=== PATIENT | female | born 1970 | race Caucasian/White ===

== ENCOUNTER 2016-11-13 21:03 | Emergency (ER) | payer BC ==
[~2016-11-13] VITALS: Ht 177.8 cm; Wt 70.4 kg
[~2016-11-13 21:03] MED LIST: LXPUNK
[2016-11-13 21:05] VITALS: TEMP 36.5; Ht 177.8 cm; Wt 70.4 kg
[2016-11-13] MEDS ORDERED: DiphenhydrAMINE HCL 50 MG/ML VIAL IV STA (21:12)
[2016-11-13] MEDS ORDERED: EpINEphrine INJ 1MG/ML AMP 1 MG/ML AMP IM STA (21:12)
[2016-11-13] MEDS ORDERED: METHYLPREDNISOLONE 125 MG VIAL IV STA (21:12)
[2016-11-13] MEDS ORDERED: SODIUM CHLORIDE 0.9% 1000ML 1,000 ML IV ONE (21:15)
[2016-11-13] MEDS ORDERED: WLLSR/150 PO (21:30)
[2016-11-13] MEDS ORDERED: JNLF153028 PO (21:31)
[2016-11-13] MEDS ORDERED: MELATAB2 PO (21:32)
[2016-11-13] MEDS ORDERED: DIPH50TA10 PO (21:33)
[2016-11-13 21:40] LABS: MEAN CORPUSCULAR HEMOGLOBIN 29.5 pg (25-34); MEAN CORPUSCULAR HGB CONC 35.1 g/dl (32-36); MEAN PLATELET VOLUME 10.7 fL (7.4-10.4); PLATELET COUNT 347 K/uL (130-400); RED BLOOD COUNT 5.12 M/uL (4.2-5.4); WHITE BLOOD COUNT 7.27 K/uL (4.8-10.8)
[2016-11-13 22:00] LABS: BUN/CREATININE RATIO 13.2 (10-20); CALCIUM 9.4 mg/dl (8.5-10.1); CREATININE 0.88 mg/dl (0.60-1.20); POTASSIUM 3.6 mmol/L (3.5-5.1)
[2016-11-13 22:03] LABS: ALB/GLOB RATIO 1.1 (0.9-2)
[2016-11-13] MEDS ORDERED: PRED50TA PO (22:45)
[2016-11-13 22:47] LABS: BASO ABS # 0.13 K/uL (0-0.2); BASOPHIL % 1.8 %; COMPLETE YES; EOSINOPHIL % 0.9 %; LYMPH ABS # 3.31 K/uL (1.2-3.4); LYMPHOCYTE % 45.5 %; VARIANT LYM ABS # 1.32 K/uL; VARIANT LYMPHOCYTE % 18.2 %
--- NOTE | 2016-11-13 22:58 | EMERGENCY ROOM VISIT NOTE ---
History First contact with patient: 21:09 Chief Complaint: ALLERGIC REACTION Stated Complaint: ALLERGIC REACTION Nursing Triage Summary: Pt was exposed to unknown allergen. Pt experiencing generalized rash. History of Present Illness The patient is a 46 year old female who presents to the Emergency Room with complaints of allergic reaction. The patient states her symptoms began about 2 hours prior to arrival. She did not start new medications or any different foods than normal. The only thing different today was that she did lick multiple envelopes to send male today, and shortly afterwards she began having discomfort of her tongue. Patient is now having a rash across her entire body. The patient does not have worsening throat discomfort, coughing, or wheezing. She does have abdominal cramping and feels like she may need to use the bathroom. She does not have fever or chills. She has had a similar episode like this several months ago. She used Benadryl at home. She does have an EpiPen, but did not feel that she needed to use it. She rates her current discomfort a 5/10. Review of Systems More than 10 systems were reviewed and otherwise negative with the exception of history of present illness. Past Medical/Surgical History No pertinent chronic medical disease Family History No pertinent family history Social History Smoking Status: Never Smoker Occupation Status: employed Current/Historical Medications Scheduled Bupropion Hcl (Wellbutrin Sr), 150 MG PO DAILY Ethinyl Estradiol/Norethindr (), 1 TAB PO DAILY Melatonin (Melatonin Maximum Strengt), 5 MG PO HS Prednisone (Prednisone), 50 MG PO DAILY Scheduled PRN Diphenhydramine Hcl (Sleep) (Diphenhydramine Hcl), 50 MG PO Q8 PRN for ALLERGIC REACTION Allergies Coded Allergies: Clarithromycin (Verified Allergy, Mild, 11/13/16) Physical Exam Vital Signs Date Time Temp Pulse Resp B/P Pulse Ox O2 Delivery O2 Flow Rate FiO2 11/14/16 00:51 106 20 120/69 97 Room Air 11/14/16 00:14 105 20 138/79 97 Room Air 11/13/16 22:26 103 20 131/77 97 Room Air 11/13/16 21:29 98 11/13/16 21:17 Room Air 11/13/16 21:05 36.5 112 18 123/67 97 Room Air Physical Exam VITALS: Vitals are noted on the nurse's note and reviewed by myself. Vital signs stable. GENERAL: Well-developed, well-nourished, white female who is in moderate distress secondary to her stated complaint. She is cooperative with the examination. HEAD: Normocephalic atraumatic. EARS: External ear normal. External auditory canals clear, tympanic membranes pearly darden without erythema or effusion bilaterally. EYES: Pupils equal round and reactive to light and accommodation. Conjunctivae without injection, sclerae without icterus. Extraocular movements intact. NOSE: Patent, turbinates without inflammation or discharge. MOUTH: Mucous membranes moist. Tonsils are not enlarged. Pharynx without erythema, blood, or exudate. Uvula midline. Airway patent. NECK: Supple without nuchal rigidity. No lymphadenopathy. No thyromegaly. Cervical spine is nontender. HEART: Regular rate and rhythm without murmurs gallops or rubs. LUNGS: Clear to auscultation bilaterally without wheezes, rales or rhonchi. No retractions or accessory muscle use. ABDOMEN: Positive normal bowel sounds x 4. Soft, nontender, without masses or organomegaly. No guarding or rebound tenderness. MUSCULOSKELETAL: No muscle atrophy, erythema, or edema noted. Full range of motion without joint tenderness in all extremities. SKIN: The skin was with diffuse urticarial rash across her body. Palms and soles are spared. Medical Decision & Procedures Laboratory Results 11/13/16 21:25 Red Blood Count 5.12, Mean Corpuscular Volume 84.0, Mean Corpuscular Hemoglobin 29.5, Mean Corpuscular Hemoglobin Concent 35.1, Mean Platelet Volume 10.7 11/13/16 21:25 Test 11/13/16 21:25 White Blood Count 7.27 K/uL (4.8-10.8) Red Blood Count 5.12 M/uL (4.2-5.4) Hemoglobin 15.1 g/dL (12.0-16.0) Hematocrit 43.0 % (37-47) Mean Corpuscular Volume 84.0 fL (80-100) Mean Corpuscular Hemoglobin 29.5 pg (25-34) Mean Corpuscular Hemoglobin Concent 35.1 g/dl (32-36) Platelet Count 347 K/uL (130-400) Mean Platelet Volume 10.7 fL (7.4-10.4) RDW Standard Deviation 44.0 fL (36.4-46.3) RDW Coefficient of Variation 14.2 % (11.5-14.5) Neutrophils % (Manual) 30.0 % Lymphocytes % (Manual) 45.5 % Variant Lymphocytes % (manual) 18.2 % Monocytes % (Manual) 3.6 % Eosinophils % (Manual) 0.9 % Basophils % (Manual) 1.8 % Neutrophils # (Manual) 2.18 K/uL (1.4-6.5) Total Absolute Neutrophils 2.18 K/uL (1.4-6.5) Lymphocytes # (Manual) 3.31 K/uL (1.2-3.4) Absolute Variant Lymphocytes 1.32 K/uL Total Absolute Lymphocytes 4.63 K/uL (1.2-3.4) Monocytes # (Manual) 0.26 K/uL (0.11-0.59) Eosinophils # (Manual) 0.07 K/uL (0-0.5) Basophils # (Manual) 0.13 K/uL (0-0.2) Anion Gap 15.0 mmol/L (3-11) Est Creatinine Clear Calc Drug Dose 88.2 ml/min Estimated GFR () 92.6 Estimated GFR (Non- 79.9 BUN/Creatinine Ratio 13.2 (10-20) Calcium Level 9.4 mg/dl (8.5-10.1) Total Bilirubin 0.3 mg/dl (0.2-1) Aspartate Amino Transf (AST/SGOT) 17 U/L (15-37) Alanine Aminotransferase (ALT/SGPT) 29 U/L (12-78) Alkaline Phosphatase 61 U/L (45-117) Total Protein 7.8 gm/dl (6.4-8.2) Albumin 4.0 gm/dl (3.4-5.0) Globulin 3.8 gm/dl (2.5-4.0) Albumin/Globulin Ratio 1.1 (0.9-2) Medications Administered Medications (Trade) Dose Ordered Sig/Garret Route Start Time Stop Time Status Last Admin Dose Admin Sodium Chloride (Nss 1000ml) 1,000 ml @ 999 mls/hr Q1H1M ONCE IV 11/13/16 21:15 11/13/16 22:15 DC 11/13/16 21:31 999 MLS/HR Methylprednisolone Sodium Succinate (Solu-Medrol IV) 125 mg NOW STAT IV 11/13/16 21:12 11/13/16 21:18 DC 11/13/16 21:31 125 MG Diphenhydramine HCl (Benadryl Inj) 25 mg NOW STAT IV 11/13/16 21:12 11/13/16 21:18 DC 11/13/16 21:31 25 MG Epinephrine HCl (EpINEphrine INJ 1MG/ML AMP/VIAL) 0.3 mg NOW STAT IM 11/13/16 21:12 11/13/16 21:18 DC 11/13/16 21:24 0.3 MG ED Course Physical exam and history were performed. Nursing notes and EMR were reviewed. Patient appears to have allergic reaction to unknown antigen. The patient has a very impressive rash across her entire body. She does not have difficulty breathing or chest pain, however she does have GI symptoms as well. Because of this IV access was established and labs are obtained. Patient was hydrated with normal saline. She was given 125 mg IV Solu-Medrol and 25 mg IV Benadryl. The patient was given 0.3 mg IM epinephrine. She was placed on the rn cardiac rehab. Patient blood work is as above and was reviewed. She does not have a significantly elevated white blood cell count, anemia, bandemia, or significant electrolyte imbalance. The patient remained in stable condition for several hours. She overall is felt to be stable for discharge home, and she did not experience a rebound phenomenon following initiation of the epinephrine. The patient will be given a course of prednisone for her symptoms as an outpatient. She may use over-the- counter Benadryl and Zantac. She was thoroughly invited back to the ER with any new, worsening, or concerning symptoms. The chart was completed utilizing [employer] Speech Voice Recognition Software. Grammatical errors, random word insertions, pronoun errors, and incomplete sentences are an occasional consequence of this system due to software limitations, ambient noise, and hardware issues. Any formal questions or concerns about the content, text, or information contained within the body of this dictation should be directly addressed to the provider for clarification. . Medical Decision Differential diagnosis: Etiologies such as allergic reaction, anaphylaxis, urticaria, Vick-Murray syndrome, toxic epidermal necrolysis, erythema multiforme, cellulitis, as well as others were entertained. Impression Primary Impression: Allergic reaction Departure Information Dispostion Home / Self-Care Condition GOOD Prescriptions Prednisone (Prednisone) 50 Mg Tab 50 MG PO DAILY for 4 Days, #4 TAB Prov: Lan Wyman PA-C 11/13/16 Forms HOME CARE DOCUMENTATION FORM, Work Instructions, Additional Instructions: Patient was seen and evaluated today in the emergency department fo medical care. Return to work/school on 11/15/2016. Please excuse. IMPORTANT VISIT INFORMATION Patient Instructions My [facility] Additional Instructions You were seen and evaluated today on an emergency basis only. This is not a substitute for, or an effort to provide, complete comprehensive medical care. It is not possible to recognize and treat all injuries or illnesses in a single emergency department visit. For this reason it is recommended that you followup with your primary care physician in the next 1-2 days for recheck of her condition. Take prednisone 50 mg daily for the next 4 days. You may use [id number] Benadryl and Zantac as directed on the packaging. This may help with your symptoms. You are welcome to return to the emergency department anytime with new, worsening, or concerning symptoms. Work Instructions Additional Work Instructions: Patient was seen and evaluated today in the emergency department for medical care. Return to work/school on 11/15/2016. Please excuse.
[2016-11-14 00:51] VITALS: BP 120/69; PULSE 106; O2SAT 97
== END 2016-11-14 01:04 | disposition home or self-care (01) ==
LOC: C.EDB 21:04 → C.EDC 11-14 01:04
DX: T78.40XA Allergy, unspecified, initial encounter (principal); X58.XXXA Exposure to other specified factors, initial encounter; Z79.899 Other long term (current) drug therapy

== ENCOUNTER 2017-11-12 15:46 | Inpatient (IN) | payer BC, OTHER ==
[~2017-11-12] VITALS: Ht 177.8 cm; Wt 71.9 kg
[~2017-11-12 15:46] MED LIST changes: +DIPH50TA10 PO; +JNLF153028 PO; -LXPUNK; +MELATAB2 PO; +WLLSR/150 PO
[2017-11-12] MEDS ORDERED: METHYLPREDNISOLONE 125 MG VIAL IV STA (16:02)
[2017-11-12] MEDS ORDERED: SODIUM CHLORIDE 0.9% 1000ML 1,000 ML IV STA (16:04)
[2017-11-12] MEDS ORDERED: FAMOTIDINE IV INJ 20 MG in DEXTROSE 5% 100ML 100 ML IV SCH (16:15)
[2017-11-12] MEDS ORDERED: OPTIRAY 320 IV PRN (16:15)
[2017-11-12] MEDS ORDERED: GI COCKTAIL PO ONE (16:15)
[2017-11-12] MEDS ORDERED: CETI10TA84 PO (16:28)
[2017-11-12 16:37] LABS: BASO % 0.3 %; BASO ABS # 0.03 K/uL (0-0.2); EOS % 3.7 %; EOS ABS # 0.32 K/uL (0-0.5); HEMATOCRIT 43.4 % (37-47); HEMOGLOBIN 15.4 g/dL (12.0-16.0); IG# 0.03 K/uL (0.00-0.02); LYMPH % 24.2 %; LYMPH ABS # 2.08 K/uL (1.2-3.4); MEAN CELL VOLUME 86.1 fL (80-100); MEAN CORPUSCULAR HEMOGLOBIN 30.6 pg (25-34); MEAN CORPUSCULAR HGB CONC 35.5 g/dl (32-36); MONO % 9.3 %; NEUT % 62.2 %; NEUT ABS # 5.35 K/uL (1.4-6.5); PLATELET COUNT 292 K/uL (130-400); WHITE BLOOD COUNT 8.61 K/uL (4.8-10.8)
[2017-11-12 16:48] LABS: ALBUMIN 3.7 gm/dl (3.4-5.0); CALCIUM 8.8 mg/dl (8.5-10.1); CREATININE 0.9 mg/dl (0.60-1.20); POTASSIUM 3.4 mmol/L (3.5-5.1)
[2017-11-12 16:50] LABS: TOTAL PROTEIN 7.9 gm/dl (6.4-8.2)
[2017-11-12] MEDS ORDERED: LIDOCAINE HCL 2% VISC SOLN 20 ML UDC ONE (16:54)
[2017-11-12] MEDS ORDERED: ALUMINUM/MAGNESIUM SUSP 30 ML UDC ONE (16:54)
[2017-11-12] MEDS ORDERED: FAMOTIDINE 20MG/5ML IV PUSH IV ONE (16:56)
--- NOTE | 2017-11-12 17:49 | DIAGNOSTIC IMAGING REPORT ---
CT SCAN OF THE ABDOMEN AND PELVIS WITH IV CONTRAST CLINICAL HISTORY: Epigastric abdominal pain. COMPARISON STUDY: Abdominal CT dated 01/29/2011. TECHNIQUE: Following the IV administration of 95 cc of Optiray 320, CT scan of the abdomen and pelvis is performed from the lung bases to the proximal femora. Images are reviewed in the axial, sagittal, and coronal planes. IV contrast was administered without complication. A dose lowering technique was utilized adhering to the principles of ALARA. CT DOSE: 315.01 mGy.cm FINDINGS: Lung bases: The heart is normal in size and without pericardial effusion. The lung bases are clear. Liver: The contrast-enhanced liver is normal in size, contour, and attenuation. There is no intrahepatic biliary ductal dilatation. The hepatic veins and portal veins are patent. Gallbladder: The gallbladder is distended. The gallbladder wall is thickened and there is faint pericholecystic stranding and fluid. A calcified gallstone is seen in the region of the gallbladder neck on image #127. The appearance is highly concerning for acute cholecystitis. Spleen: Normal in size and attenuation. Pancreas: Unremarkable. Adrenal glands: Unremarkable. Kidneys: The contrast enhanced kidneys are normal in size and without hydronephrosis. The kidneys enhance symmetrically. Abdominal vasculature: The abdominal aorta is normal in course and caliber. Bowel: There is mild to moderate colonic fecal retention. No bowel obstruction is seen. The appendix is well-visualized and normal. Peritoneum: There is no intraperitoneal free air or abdominal ascites. There is a small fat-containing umbilical hernia. Lymphadenopathy: None. Pelvic viscera: The bladder, uterus, and adnexa are normal as visualized. There are bilateral ovarian follicles. An involuting follicle suggested on the right. A small to moderate volume of free fluid is seen in the cul-de-sac. A tampon is in place. Skeletal structures: No lytic or blastic lesions are seen. IMPRESSION: 1. Cholelithiasis with evidence of acute cholecystitis. Correlation with clinical and laboratory findings is recommended. If confirmation is required then ultrasound would be appropriate. 2. Free fluid in the cul-de-sac is likely within physiologic limits. 3. Additional findings as above. Electronically signed by: Carlos Alberto Angeles M.D. 11/12/2017 5:48 PM Dictated Date/Time: 11/12/2017 5:43 PM
[2017-11-12] MEDS ORDERED: CEFOXITIN 2000MG/60 ML D5W IV STA (18:09)
--- NOTE | 2017-11-12 19:10 | Surgery Consultation ---
Consultation Date of Consultation: Nov 12, 2017. Attending Physician: Reason for Consultation: Acute cholecystitis History of Present Illness Patient presented to the ED this evening due to abdominal pain and an allergic reaction. States she has had similar allergic reactions in the past requiring epinephrine. She did not require any at this visit but she was still having abdominal pain so a CT abd/pelvis was ordered showing findings of Cholelithiasis with evidence of acute cholecystitis. WBC WNL. States she has been having abdominal pain since Sunday. Reports her pain is somewhat exacerbated by food but she has barely eaten anything lately. Reports her pain in the RUQ epigastric area. Denies fever/chills. She has been urinating and moving her bowels without issue. Denies history of previous abdominal surgeries. She denies use of any blood thinning or anticoagulant medications. FHx positive for gallbladder disease (mother). Last ate around noon today without any issues. Last BM this morning which she reports was normal for her. Past Medical/Surgical History Medical Problems: (1) Allergic reaction Status: Acute Family History Diabetes mellitus Hypertension Kidney disease Seizures Social History Smoking Status: Never Smoker Occupation Status: employed Allergies Coded Allergies: Clarithromycin (Verified Allergy, Mild, 11/12/17) Amoxicillin (Unverified Allergy, Unknown, HIVES/RASH, 11/12/17) Home Medications Scheduled Bupropion Hcl (Wellbutrin Sr), 150 MG PO DAILY Cetirizine (Zyrtec), 10 MG PO HS Ethinyl Estradiol/Norethindr (), 1 TAB PO DAILY Melatonin (Melatonin Maximum Strengt), 5 MG PO HS Scheduled PRN Diphenhydramine Hcl (Sleep) (Diphenhydramine Hcl), 50 MG PO Q8 PRN for ALLERGIC REACTION Current Inpatient Medications Current Inpatient Medications Medications (Trade) Dose Ordered Sig/Garret Route Start Time Stop Time Status Last Admin Dose Admin Famotidine 20 mg/ Dextrose 102 ml @ 200 mls/hr NOW IV 11/12/17 16:15 12/12/17 16:14 Ioversol (Optiray 320) 100 ml UD PRN IV 11/12/17 16:15 11/16/17 16:14 Review of Systems Constitutional: No fever, No chills Respiratory: No shortness of breath Cardiovascular: No chest pain Abdomen: + pain (RUQ, epigastric), No nausea, No vomiting, No diarrhea, No constipation Genitourinary - Female: No dysuria Integumentary: No color change Physical Exam Date Time Temp Pulse Resp B/P (MAP) Pulse Ox O2 Delivery O2 Flow Rate FiO2 11/12/17 16:47 89 139/89 99 Room Air 11/12/17 16:45 98 Room Air 11/12/17 15:52 36.8 124 16 168/97 97 Room Air General Appearance: WD/WN, no apparent distress Head: normocephalic, atraumatic ENT: hearing grossly normal Respiratory/Chest: no respiratory distress, no accessory muscle use Abdomen/GI: soft, no organomegaly, no pulsatile mass, + tenderness (Mild RUQ, Mild periumbilical) Neurologic/Psych: alert, normal mood/affect, oriented x 3 Skin: normal color, warm/dry Laboratory Results Last 24 Hours Test 11/12/17 16:15 11/12/17 16:35 White Blood Count 8.61 K/uL Red Blood Count 5.04 M/uL Hemoglobin 15.4 g/dL Hematocrit 43.4 % Mean Corpuscular Volume 86.1 fL Mean Corpuscular Hemoglobin 30.6 pg Mean Corpuscular Hemoglobin Concent 35.5 g/dl Platelet Count 292 K/uL Neutrophils (%) (Auto) 62.2 % Lymphocytes (%) (Auto) 24.2 % Monocytes (%) (Auto) 9.3 % Eosinophils (%) (Auto) 3.7 % Basophils (%) (Auto) 0.3 % Neutrophils # (Auto) 5.35 K/uL Lymphocytes # (Auto) 2.08 K/uL Monocytes # (Auto) 0.80 K/uL Eosinophils # (Auto) 0.32 K/uL Basophils # (Auto) 0.03 K/uL Immature Granulocyte % (Auto) 0.3 % Immature Granulocyte # (Auto) 0.03 K/uL Sodium Level 137 mmol/L Potassium Level 3.4 mmol/L Chloride Level 104 mmol/L Carbon Dioxide Level 25 mmol/L Anion Gap 8.0 mmol/L Blood Urea Nitrogen 12 mg/dl Creatinine 0.90 mg/dl Est Creatinine Clear Calc Drug Dose 85.4 ml/min Estimated GFR () 89.5 Estimated GFR (Non- 77.2 BUN/Creatinine Ratio 13.4 Random Glucose 92 mg/dl Calcium Level 8.8 mg/dl Total Bilirubin 0.5 mg/dl Direct Bilirubin 0.1 mg/dl Aspartate Amino Transf (AST/SGOT) 14 U/L Alanine Aminotransferase (ALT/SGPT) 29 U/L Alkaline Phosphatase 71 U/L Total Protein 7.9 gm/dl Albumin 3.7 gm/dl Lipase 178 U/L Urine Color DK YELLOW Urine Appearance CLEAR Urine pH 6.0 Urine Specific Fajardo 1.036 Urine Protein TRACE Urine Glucose (UA) NEG Urine Ketones TRACE Urine Occult Blood NEG Urine Nitrite NEG Urine Bilirubin NEG Urine Urobilinogen NEG Urine Leukocyte Esterase NEG Urine WBC (Auto) 1-5 /hpf Urine RBC (Auto) 0-4 /hpf Urine Hyaline Casts (Auto) 5-10 /lpf Urine Epithelial Cells (Auto) >30 /lpf Urine Bacteria (Auto) NEG Urine Renal Epithelial Cells 5-10 /lpf Urine Mucus PRESENT Urine Test NEG Assessment & Plan Cholelithiasis with CT findings consistent for acute cholecystitis Dr. Rossi in to see and examine patient. Pain controlled, No N/V at this time. Plan for laparoscopic cholecystectomy with possible intraoperative cholangiogram, possible open with Dr. Rossi tomorrow. Admit med/surg, NPO after midnight, IV fluids, IV Mefoxin 2g Q6H, Pain medication PRN, Zofran PRN, SCDs. Please contact with questions or concerns.
[2017-11-12] MEDS ORDERED: MoRPHine SULFATE 2 MG/ML CARP IV PRN ×2 (19:15→21:30)
[2017-11-12] MEDS ORDERED: MoRPHine SULFATE 4 MG/ML 1 ML CARP\\VIAL IV PRN ×2 (19:15→21:30)
[2017-11-12] MEDS: SODIUM CHLORIDE 0.9% 1000ML 1,000 ML IV SCH (19:54)
[2017-11-12 20:00] VITALS: BP 138/89; PULSE 93; TEMP 36.7; O2SAT 96; Ht 177.8 cm; Wt 71.9 kg
[2017-11-12] MEDS: ACETAMINOPHEN IV 1,000 MG in EMPTY BAG 0 ML IV SCH (21:00)
--- NOTE | 2017-11-12 22:26 | EMERGENCY ROOM VISIT NOTE ---
History Report prepared by Nic: Saad Pryor Under the Supervision of: Dr. Miguel Ángel Romero D.O. First contact with patient: 15:56 Chief Complaint: ALLERGIC REACTION Stated Complaint: RASH, ITCHY, ABDOMINAL PAIN History of Present Illness The patient is a 47 year old female with a history of allergic reactions who presents to the Emergency Room with complaints of a sudden allergic reaction that started earlier this afternoon. She notes that she has had 3 allergic reactions like this in the past. The patient states that initially her armpits and hands got itchy and red, and then it spreads to her legs. She notes that she took 50 mg Benadryl around an hour ago. She says that her lower lips then became numb. The patient says that she has not had an allergic reaction like this in a year, and she follows-up with a [facility] enterprise resource analyst. She adds that she has been having nausea and abdominal pain for a few days. 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 The patient notes that her last bowel movement was 2 hours ago and it was normal. She denies any cough, runny nose, chest pain , vomiting, or diarrhea. She says that she has not gotten hives with her previous allergic reactions. The patient still has her gallbladder and appendix. Source of History: patient Onset: Earlier this afternoon Position: other (global) Symptom Intensity: itchy and red on armpits, hands, legs Quality: other (allergic reaction) Timing: other (sudden) Associated Symptoms: + nausea, + abdominal pain, + numbness (lower lips), No cough (or runny nose), No vomiting, No diarrhea Note: No other associated symptoms noted. Review of Systems See HPI for pertinent positives & negatives. A total of 10 systems reviewed and were otherwise negative. Past Medical & Surgical Medical Problems: (1) Asthma (2) Cholecystitis, acute with cholelithiasis Family History Diabetes mellitus Hypertension Kidney disease Seizures Social History Smoking Status: Never Smoker Drug Use: none Marital Status: Housing Status: lives with family Occupation Status: employed Current/Historical Medications Scheduled Bupropion Hcl (Wellbutrin Sr), 150 MG PO DAILY Cetirizine (Zyrtec), 10 MG PO HS Ethinyl Estradiol/Norethindr (), 1 TAB PO DAILY Melatonin (Melatonin Maximum Strengt), 5 MG PO HS Scheduled PRN Diphenhydramine Hcl (Sleep) (Diphenhydramine Hcl), 50 MG PO Q8 PRN for ALLERGIC REACTION Allergies Coded Allergies: Clarithromycin (Verified Allergy, Mild, 11/12/17) Amoxicillin (Unverified Allergy, Unknown, HIVES/RASH, 11/12/17) Physical Exam Vital Signs Date Time Temp Pulse Resp B/P (MAP) Pulse Ox O2 Delivery O2 Flow Rate FiO2 11/12/17 19:18 94 18 148/92 99 Room Air 11/12/17 16:47 89 139/89 99 Room Air 11/12/17 16:45 98 Room Air 11/12/17 15:52 36.8 124 16 168/97 97 Room Air Physical Exam GENERAL: Sitting up in bed, alert, well appearing, well nourished, no distress, non-toxic, talking in full sentences. EYE EXAM: normal conjunctiva. PERRL and EOM's grossly intact. OROPHARYNX: no exudate, no erythema, lips, buccal mucosa, and tongue normal and mucous membranes are moist NECK: supple, no nuchal rigidity, no adenopathy, non-tender LUNGS: Clear to auscultation. Normal chest wall mechanics HEART: no murmurs, S1 normal and S2 normal ABDOMEN: abdomen soft, minimal tenderness in epigastric region, normo-active bowel sounds, no masses, no rebound or guarding. BACK: Back is symmetrical on inspection and there is no deformity, no midline tenderness, no CVA tenderness. SKIN: no rashes and no bruising UPPER EXTREMITIES: upper extremities are grossly normal. LOWER EXTREMITIES: No pitting edema. NEURO EXAM: Normal sensorium, cranial nerves II-XII grossly intact, normal speech, no gross weakness of arms, no gross weakness of legs. Medical Decision & Procedures ER Provider Diagnostic Interpretation: CT:Per my review, radiologist interpretation. CT SCAN OF THE ABDOMEN AND PELVIS WITH IV CONTRAST CLINICAL HISTORY: Epigastric abdominal pain. COMPARISON STUDY: Abdominal CT dated 01/29/2011. TECHNIQUE: Following the IV administration of 95 cc of Optiray 320, CT scan of the abdomen and pelvis is performed from the lung bases to the proximal femora. Images are reviewed in the axial, sagittal, and coronal planes. IV contrast was administered without complication. A dose lowering technique was utilized adhering to the principles of ALARA. CT DOSE: 315.01 mGy.cm FINDINGS: Lung bases: The heart is normal in size and without pericardial effusion. The lung bases are clear. Liver: The contrast-enhanced liver is normal in size, contour, and attenuation. There is no intrahepatic biliary ductal dilatation. The hepatic veins and portal veins are patent. Gallbladder: The gallbladder is distended. The gallbladder wall is thickened and there is faint pericholecystic stranding and fluid. A calcified gallstone is seen in the region of the gallbladder neck on image #127. The appearance is highly concerning for acute cholecystitis. Spleen: Normal in size and attenuation. Pancreas: Unremarkable. Adrenal glands: Unremarkable. Kidneys: The contrast enhanced kidneys are normal in size and without hydronephrosis. The kidneys enhance symmetrically. Abdominal vasculature: The abdominal aorta is normal in course and caliber. Bowel: There is mild to moderate colonic fecal retention. No bowel obstruction is seen. The appendix is well-visualized and normal. Peritoneum: There is no intraperitoneal free air or abdominal ascites. There is a small fat-containing umbilical hernia. Lymphadenopathy: None. Pelvic viscera: The bladder, uterus, and adnexa are normal as visualized. There are bilateral ovarian follicles. An involuting follicle suggested on the right. A small to moderate volume of free fluid is seen in the cul-de-sac. A tampon is in place. Skeletal structures: No lytic or blastic lesions are seen. IMPRESSION: 1. Cholelithiasis with evidence of acute cholecystitis. Correlation with clinical and laboratory findings is recommended. If confirmation is required then ultrasound would be appropriate. 2. Free fluid in the cul-de-sac is likely within physiologic limits. 3. Additional findings as above. Electronically signed by: Carlos Alberto Angeles M.D. 11/12/2017 5:48 PM Dictated Date/Time: 11/12/2017 5:43 PM Laboratory Results 11/12/17 16:15 Red Blood Count 5.04, Mean Corpuscular Volume 86.1, Mean Corpuscular Hemoglobin 30.6, Mean Corpuscular Hemoglobin Concent 35.5, Neutrophils (%) (Auto) 62.2, Lymphocytes (%) (Auto) 24.2, Monocytes (%) (Auto) 9.3, Eosinophils (%) (Auto) 3.7, Basophils (%) (Auto) 0.3, Neutrophils # (Auto) 5.35, Lymphocytes # (Auto) 2.08, Monocytes # (Auto) 0.80, Eosinophils # (Auto) 0.32, Basophils # (Auto) 0.03 11/12/17 16:15 Test 11/12/17 16:15 11/12/17 16:35 White Blood Count 8.61 K/uL (4.8-10.8) Red Blood Count 5.04 M/uL (4.2-5.4) Hemoglobin 15.4 g/dL (12.0-16.0) Hematocrit 43.4 % (37-47) Mean Corpuscular Volume 86.1 fL (80-100) Mean Corpuscular Hemoglobin 30.6 pg (25-34) Mean Corpuscular Hemoglobin Concent 35.5 g/dl (32-36) Platelet Count 292 K/uL (130-400) Neutrophils (%) (Auto) 62.2 % Lymphocytes (%) (Auto) 24.2 % Monocytes (%) (Auto) 9.3 % Eosinophils (%) (Auto) 3.7 % Basophils (%) (Auto) 0.3 % Neutrophils # (Auto) 5.35 K/uL (1.4-6.5) Lymphocytes # (Auto) 2.08 K/uL (1.2-3.4) Monocytes # (Auto) 0.80 K/uL (0.11-0.59) Eosinophils # (Auto) 0.32 K/uL (0-0.5) Basophils # (Auto) 0.03 K/uL (0-0.2) Immature Granulocyte % (Auto) 0.3 % Immature Granulocyte # (Auto) 0.03 K/uL (0.00-0.02) Anion Gap 8.0 mmol/L (3-11) Est Creatinine Clear Calc Drug Dose 85.4 ml/min Estimated GFR () 89.5 Estimated GFR (Non- 77.2 BUN/Creatinine Ratio 13.4 (10-20) Calcium Level 8.8 mg/dl (8.5-10.1) Total Bilirubin 0.5 mg/dl (0.2-1) Direct Bilirubin 0.1 mg/dl (0-0.2) Aspartate Amino Transf (AST/SGOT) 14 U/L (15-37) Alanine Aminotransferase (ALT/SGPT) 29 U/L (12-78) Alkaline Phosphatase 71 U/L (45-117) Total Protein 7.9 gm/dl (6.4-8.2) Albumin 3.7 gm/dl (3.4-5.0) Lipase 178 U/L (73-393) Urine Color DK YELLOW Urine Appearance CLEAR (CLEAR) Urine pH 6.0 (4.5-7.5) Urine Specific [place] 1.036 (1.000-1.030) Urine Protein TRACE (NEG) Urine Glucose (UA) NEG (NEG) Urine Ketones TRACE (NEG) Urine Occult Blood NEG (NEG) Urine Nitrite NEG (NEG) Urine Bilirubin NEG (NEG) Urine Urobilinogen NEG (NEG) Urine Leukocyte Esterase NEG (NEG) Urine WBC (Auto) 1-5 /hpf (0-5) Urine RBC (Auto) 0-4 /hpf (0-4) Urine Hyaline Casts (Auto) 5-10 /lpf (0-5) Urine Epithelial Cells (Auto) >30 /lpf (0-5) Urine Bacteria (Auto) NEG (NEG) Urine Renal Epithelial Cells 5-10 /lpf (0-5) Urine Mucus PRESENT (NONE PRSENT) Urine Test NEG (NEG) Laboratory results per my review. Medications Administered Medications (Trade) Dose Ordered Sig/Garret Route Start Time Stop Time Status Last Admin Dose Admin Methylprednisolone Sodium Succinate (Solu-Medrol IV) 125 mg NOW STAT IV 11/12/17 16:02 11/12/17 16:05 DC 11/12/17 17:00 125 MG Sodium Chloride 1,000 ml @ 999 mls/hr Q1H1M STAT IV 11/12/17 16:04 11/12/17 17:04 DC 11/12/17 16:43 999 MLS/HR Al Hydroxide/Mg Hydroxide (Maalox Susp) 30 ml STK-MED ONCE .ROUTE 11/12/17 16:54 11/12/17 16:55 DC 11/12/17 17:00 30 ML Lidocaine HCl (Viscous Lidocaine 2% Soln) 20 ml STK-MED ONCE .ROUTE 11/12/17 16:54 11/12/17 16:55 DC 11/12/17 17:00 20 ML Famotidine (Pepcid 20mg Iv Push) 20 mg STK-MED ONCE IV 11/12/17 16:56 11/12/17 16:57 DC 11/12/17 17:00 20 MG Cefoxitin Sodium (Mefoxin 2000mg/ 60 ml D5W) 2,000 mg NOW STAT IV 11/12/17 18:09 11/12/17 18:11 DC 11/12/17 19:18 2,000 MG Sodium Chloride 1,000 ml @ 100 mls/hr Q10H IV 11/12/17 19:15 12/12/17 19:14 11/12/17 19:54 100 MLS/HR ED Course ED COURSE: Vital signs were reviewed and showed hypertensive and tachycardic vitals. The patients medical record was reviewed The above diagnostic studies were performed and reviewed. ED treatments and interventions as stated above. 1556: The patient was evaluated in room A4A. A complete history and physical examination was performed. 1602: Ordered Solu-Medrol IV 125 mg IV. 1604: Ordered NSS 1000 ml @ 999 mls/hr IV. 1615: Ordered GI Cocktail 24 ml PO. 1803: Upon reevaluation, the patient is resting. I discussed my findings with the patient and she3 understands and agrees with the treatment plan. Based on the patients age, coexisting illnesses, exam and lab findings the decision to treat as an inpatient was made. The patient remained stable while under my care. The patient will be evaluated for further management. 1805: I reviewed the patient's case with Kyung SCHULZ general surgery. She will evaluate the patient for further management. 1809: Ordered Mefoxin 2000 mg/60 ml D5W 2000 mg IV. Medical Decision Differential diagnoses includes but is not limited to gastritis, peptic ulcer disease, GERD, gallbladder disease, pancreatitis, small bowel obstruction, acute coronary syndrome, pericarditis, ischemic bowel, irritable bowel disease, irritable bowel syndrome, appendicitis, diverticulitis, malignancy, hernia, urinary tract infection, torsion, /ectopic , perforation, trauma, infectious, allergic reaction, anaphylaxis, urticaria, Vick-Murray syndrome, toxic epidermal necrolysis, erythema multiforme, cellulitis, as well as others were entertained. Patient is a 47-year-old female who presents initially for allergic reaction. She notes that she has swelling and itching in her hands and under her armpits. She admits she has had this multiple times before the past. She also gives a history of epigastric abdominal pain which started 2 days ago was very severe. It has improved slightly. Not able to eat or drink. CBC along with BMP, LFTs, bilirubin and lipase was unremarkable. UA was contaminated. negative. CT shows acute cholecystitis. Prior to this she was given steroids and famotidine. She was covered with antibiotics and admitted to surgery for acute cholecystitis. Medication Reconcilliation Current Medication List: was personally reviewed by me Blood Pressure Screening Patient's blood pressure: Elevated blood pressure Consults Time Called: 180 Consulting Physician: Kyung SCHULZ general surgery Returned Call: [phone] I reviewed the patient's case with Kyung SCHULZ general surgery. She will evaluate the patient for further management. Impression Primary Impression: Acute cholecystitis Scribe Attestation The scribe's documentation has been prepared under my direction and personally reviewed by me in its entirety. I confirm that the note above accurately reflects all work, treatment, procedures, and medical decision making performed by me. Departure Information Dispostion Being Evaluated By Surgeon Referrals No Doctor, Assigned (PCP) Patient Instructions My [facility]
[2017-11-12 22:55] VITALS: BP 125/71; PULSE 97; TEMP 36.4; O2SAT 97
[2017-11-13] VITALS (8 sets, daily range): BP systolic 105–147; BP diastolic 70–95; PULSE 78–97; TEMP 36.6–36.9; O2SAT 96–98
[2017-11-13] MEDS: CEFOXITIN IV 2,000 MG in DEXTROSE 5% 50ML 50 ML IV SCH ×3 (01:52→13:51)
[2017-11-13] MEDS: SODIUM CHLORIDE 0.9% 1000ML 1,000 ML IV SCH (05:36)
[2017-11-13] MEDS: ACETAMINOPHEN IV 1,000 MG in EMPTY BAG 0 ML IV SCH ×2 (05:39→13:29)
--- NOTE | 2017-11-13 05:51 | History & Physical Bridge Note ---
H&P Re-Evaluation Bridge Note: I have examined the patient, reviewed the History & Physical and in the interval since the performance of the History & Physical I have noted the following changes of clinical significance: No changes noted some nausea last night agrees for gurdeep nunes explained to pt including converting to open procedure exam minimal ruq guarding
[2017-11-13] MEDS ORDERED: DEXAMETHASONE SOD INJ 4 MG/ML VIAL ONE (06:27)
[2017-11-13] MEDS ORDERED: LIDOCAINE HCL 2% 2 ML VIAL (20MG/ML) ONE (06:27)
[2017-11-13] MEDS ORDERED: ONDANSETRON INJ 2 MG/ML 2 ML VIAL ONE (06:27)
[2017-11-13] MEDS ORDERED: PROPOFOL IV EMULSION 10 MG/ML 20 ML VIAL IV ONE (06:27)
[2017-11-13] MEDS ORDERED: NEOSTIGMINE METHYLSULFATE 5 MG/5 ML SYR ONE (06:27)
[2017-11-13] MEDS ORDERED: MIDAZOLAM HCL 1 MG/ML 2ML VIAL ONE (06:27)
[2017-11-13] MEDS ORDERED: GLYCOPYRROLATE INJ 0.2 MG/ML VIAL ONE (06:27)
[2017-11-13] MEDS ORDERED: ROCURONIUM BROMIDE 10 MG/ML 5 ML VIAL IV ONE (06:27)
[2017-11-13] MEDS ORDERED: FENTANYL CITRATE INJ 50 MCG/1 ML 2 ML VIAL ONE (06:28)
[2017-11-13] MEDS ORDERED: ACETAMINOPHEN 1000 MG/100 ML IV IV ONE (06:32)
[2017-11-13] MEDS ORDERED: RANI150T85 PO (06:34)
[2017-11-13] MEDS ORDERED: ventolin inhaler INH (06:34)
[2017-11-13] MEDS ORDERED: ASPITAB71 PO (06:35)
[2017-11-13] MEDS ORDERED: LIDOCAINE/EPINEPHRINE 1% 20 ML VIAL ONE (06:42)
[2017-11-13] MEDS ORDERED: CONRAY 60% 50 ML VIAL ONE (06:43)
[2017-11-13] MEDS ORDERED: PHENYLEPHRINE 100MCG/ML 5ML SYR IV PRN (07:00)
[2017-11-13] MEDS ORDERED: ONDANSETRON INJ 2 MG/ML 2 ML VIAL IV PRN (07:00)
[2017-11-13] MEDS ORDERED: HYDROmorphone INJ 2 MG/ML SYR/VIAL IV PRN (07:00)
[2017-11-13] MEDS ORDERED: ATROPINE SULFATE 0.1 MG/ML 5ML SYR IV PRN (07:00)
[2017-11-13] MEDS ORDERED: EpHEDrine SULFATE INJ 50 MG/ML AMP IV PRN (07:00)
--- NOTE | 2017-11-13 07:58 | [facility] Post Operative Brief Note ---
Immediate Operative Summary Operative Date Nov 13, 2017. Pre-Operative Diagnosis Acute Cholecystitis with Cholelithiasis Post-Operative Diagnosis Same as preoperative Procedure(s) Performed Laparoscopic Cholecystectomy with Cholangiogram Surgeon Dr. Chino Rossi Therapeutic Mentor Surgeon(s) Tato Pascual PA-C Estimated Blood Loss 3.5ml Findings See Below [facility] Specimens A.) Gallbladder and contents Anesthesia Type General
--- NOTE | 2017-11-13 08:11 | [facility] Operative Report ---
Operative Report Operative Date Nov 13, 2017. Pre-Operative Diagnosis Acute Cholecystitis with Cholelithiasis Post-Operative Diagnosis Same as preoperative Procedure(s) Performed Laparoscopic Cholecystectomy with Cholangiogram Surgeon Dr. Chino Rossi Anthropologist Physical Surgeon(s) Tato Pascual PA-C Estimated Blood Loss 3.5ml Findings accc Specimens A.) Gallbladder and contents Anesthesia Type General Description of Procedure under general anesthesia 3 mm trocar inserted in umbilical area after establishing pneumoperitoneum with V needle 5 mm epigastric and 2 3mm subcotal ports inserted with prior local injection , gallbladder tense and thick walled drained with aspirating needle, triangle of Calot dissected artery double clipped and divided cystic duct small clipped prox and 4 F ureteral cath inserted after 14 cath placed through abd wall abd wall , serial xray free flow in duodenum no filling defect, cystic duct double clipped and devided gallbladder removed antigrade fashion with cautery at 25-35 coag setting , gallblaadder placed in bowel bag and removed epigastric port large stone present, fossa inspected dry camera placed subcostal port to visualize umbilcal area no adhesion wound closed with ss 3mm and fascial stich 2 -0 dexon epigastrc and 4-0 monocryl ss procedure tolerated well ebl 3 cc I attest to the content of the Intraoperative Record and any orders documented therein. Any exceptions are noted below.
[2017-11-13] MEDS ORDERED: OXYCODONE/ACETAMINOPHEN 5-325 TAB PO PRN (08:15)
[2017-11-13] MEDS ORDERED: LACTATED RINGER'S 1000ML 1,000 ML IV SCH (08:15)
[2017-11-13] MEDS ORDERED: OXYC-57 PO (08:20)
--- NOTE | 2017-11-13 08:22 | Discharge Instructions ---
Discharge Instructions Date of Service Nov 13, 2017. Admission Reason for Admission: Cholecystitis, Acute With Cholelithiasis Discharge Discharge Diagnosis / Problem: laparoscopic cholecystectomy Discharge Goals Goal(s): Decrease discomfort Activity Recommendations Activity Limitations: as noted below Lifting Limitations: no more than 10 pounds Shower/Bathe: tomorrow Driving or Machine Use: resume 3 days after discharge . Instructions / Follow-Up Instructions / Follow-Up Dr. Rossi in 1 week, call [phone] to schedule, [address] Current Hospital Diet Patient's current hospital diet: Clear Liquid Diet Discharge Diet Recommended Diet: Regular Diet (eat lightly for a few days) Procedures Procedures Performed: Laparoscopic Cholecystectomy with Cholangiogram Pending Studies Studies pending at discharge: yes List of pending studies: pathology Medical Emergencies . Who to Call and When: Medical Emergencies: If at any time you feel your situation is an emergency, please call 911 immediately. . Non-Emergent Contact Non-Emergency issues call your: Surgeon Call Non-Emergent contact if: you have a fever, temperature is above 101.5, your pain is not controlled, wound has increased redness, you have any medication questions . "Provider Documentation" section prepared by Tato Pascual. . [place] Drug Monitoring Program Search Results: no issues identified
--- NOTE | 2017-11-13 08:23 | DIAGNOSTIC IMAGING REPORT ---
CHOLANGIOGRAM O.R. HISTORY: 47 years-old Female LAP JAYJAY status post cholecystectomy COMPARISON: CT abdomen and pelvis 11/12/2017 TECHNIQUE: 2 spot fluoroscopic images of the right upper abdomen were obtained utilizing 2.6 seconds fluoroscopy time FINDINGS: Cannulation of the cystic duct is noted with opacification of a normal-appearing common bile duct which normally empties into the duodenum. Cholecystectomy clips are noted from recent cholecystectomy. Additionally, there is reflux of contrast into the intrahepatic biliary tree demonstrating no focal stricturing, filling defects or dilatation. IMPRESSION: Fluoroscopic assistance as above. Please see operative report for further details. The above report was generated using voice recognition software. It may contain grammatical, syntax or spelling errors. Electronically signed by: Chris Triplett M.D. 11/13/2017 8:21 AM Dictated Date/Time: 11/13/2017 8:19 AM
[2017-11-13] MEDS: ONDANSETRON INJ 2 MG/ML 2 ML VIAL IV PRN ×2 (08:27→13:51)
--- NOTE | 2017-11-13 09:33 | Anesthesiology Progress Note ---
Anesthesia Post Op Note Date & Time Nov 13, 2017 at 09:33 Vital Signs Pain Intensity: 0 Vital Signs Past 12 Hours Date Time Temp Pulse Resp B/P (MAP) Pulse Ox O2 Delivery O2 Flow Rate FiO2 11/13/17 08:34 77 15 11/13/17 08:34 76 15 100 11/13/17 08:31 36.8 79 20 154/91 (103) 100 Nasal Cannula 2 11/13/17 08:30 154/91 11/13/17 08:29 82 17 100 11/13/17 08:29 81 17 11/13/17 08:25 143/95 11/13/17 08:24 79 17 100 11/13/17 08:24 79 17 11/13/17 08:20 150/97 11/13/17 08:19 88 26 100 11/13/17 08:19 87 26 11/13/17 08:18 85 24 11/13/17 08:18 84 24 100 11/13/17 08:15 142/92 11/13/17 08:13 90 26 100 11/13/17 08:13 86 26 11/13/17 08:10 156/89 11/13/17 08:09 147/76 11/13/17 08:08 36.5 102 16 147/76 (102) 96 Oxymask 10 11/13/17 06:32 36.6 89 16 105/70 (82) 96 Room Air 11/13/17 00:00 Room Air 11/12/17 22:55 36.4 97 16 125/71 (89) 97 Room Air Notes Mental Status: alert / awake / arousable, participated in evaluation Pt Amnestic to Procedure: Yes Nausea / Vomiting: adequately controlled Pain: adequately controlled Airway Patency, RR, SpO2: stable & adequate BP & HR: stable & adequate Hydration State: stable & adequate Anesthetic Complications: no major complications apparent
--- NOTE | 2017-11-13 12:54 | Progress Note ---
Progress Note Date of Service Nov 13, 2017. Progress Note some N/V this AM just after surgery, resolved now some pain at epigastric port advance diet as jose, home when tolerating diet
--- NOTE | 2017-11-14 12:36 | DISCHARGE SUMMARY ---
PRIMARY DISCHARGE DIAGNOSIS: Cholelithiasis with acute cholecystitis. SECONDARY DISCHARGE DIAGNOSIS: Asthma. PROCEDURE PERFORMED: Laparoscopic cholecystectomy with intraoperative cholangiogram. HOSPITAL COURSE: The patient is a 47-year-old female who presented to Emergency Department complaining of an allergic reaction, for which she was treated with steroids and famotidine. She also complained of several days of abdominal pain and nausea. Abdominal CT showed gallbladder wall thickening and pericholecystic fluid with a stone in the gallbladder neck, concerning for cholecystitis. She was admitted to surgery service and continued on IV Mefoxin overnight. She was taken to the operating room the next morning for laparoscopic cholecystectomy with cholangiogram. The cholangiogram was negative. The procedure was well tolerated. She was returned to the surgical floor. She was able to tolerate an advancing diet during the day. By the evening, her pain was managed with oral analgesics. She was tolerating regular diet. She was stable for discharge. DISCHARGE INSTRUCTIONS: Discharge home. Follow up with Dr. Rossi in approximately 1 week. DISCHARGE MEDICATIONS: Percocet 1-2 tablets every 4 hours as needed, can resume her home medications of Wellbutrin SR 150 mg daily, Zyrtec 10 mg at bedtime, diphenhydramine 50 mg as needed, melatonin 5 mg at bedtime, Zantac 150 mg daily, Ventolin inhaler 2 puffs as needed, Junel FE 1.5/30 mg daily, and Oylie-Mears p.r.n.
== END 2017-11-13 19:00 | disposition home or self-care (01) | DRG 419 ==
LOC: C.EDB 15:48 → C.MSW 19:21 → ENRESERV 19:38
PROVIDERS: ADMIT Surgery; ATTEND Surgery
PROC: 0FT44ZZ Resection of Gallbladder, Percutaneous Endoscopic Approach (ICD-10-PCS; principal; 2017-11-13 07:00)
DX: K80.00 Calculus of gallbladder with acute cholecystitis without obstruction (principal); J45.909 Unspecified asthma, uncomplicated; Z88.1 Allergy status to other antibiotic agents; Z83.3 Family history of diabetes mellitus; Z82.49 Family history of ischemic heart disease and other diseases of the circulatory system; Z84.1 Family history of disorders of kidney and ureter; Z82.0 Family history of epilepsy and other diseases of the nervous system